=== PATIENT | male | born 1985 | race Caucasian/White ===

== ENCOUNTER 2017-04-04 17:31 | Emergency (ER) | payer OTHER ==
[~2017-04-04] VITALS: Ht 177.8 cm; Wt 72.6 kg
[~2017-04-04 17:31] MED LIST: ACEBUTCAFT PO; BUPRENORPHINE HC8 MG SL; CIPR.3TO RIGHTEYE; CYCL10 PO; Diphenhydramine50 M1 PO; HYDACE5 PO; HYDACE7.5 PO; IBUP600 PO; IBUP800; IBUP800 PO; KETO10 PO; METO10 PO; NAPR375 PO; NAPR500 PO; OXYACE5T PO; PENVK500 PO; PROACE100; PROACE100 PO; RXOXYACE PO; RXTRAM50 PO; SUBOXONE 8 MG-1 EACH SL; TRAM50 PO
== END 2017-04-04 19:50 | disposition left against medical advice (07) ==
LOC: ER 17:31
DX: K08.89 Other specified disorders of teeth and supporting structures (principal); Z79.899 Other long term (current) drug therapy; F17.200 Nicotine dependence, unspecified, uncomplicated
CPT/HCPCS: 99282

== ENCOUNTER 2017-08-25 09:22 | Emergency (ER) | payer OTHER ==
[~2017-08-25] VITALS: Ht 177.8 cm; Wt 72.6 kg
[2017-08-25] MEDS ORDERED: IBUP800 PO (10:48)
[2017-08-25] MEDS ORDERED: Robaxin-750750 MG PO (10:48)
== END 2017-08-25 12:18 | disposition home or self-care (01) ==
LOC: ER 09:22
DX: M54.16 Radiculopathy, lumbar region (principal); F17.200 Nicotine dependence, unspecified, uncomplicated
CPT/HCPCS: 72100; J1885

== ENCOUNTER → 2020-10-29 | Outpatient (CLI) | payer OTHER ==
[~2020-10-29] MED LIST changes: +Robaxin-750750 MG PO
[2020-10-31 21:58] LABS: CORONAVIRUS (COVID19) CSH-NRL Negative (Negative)
== END | disposition home or self-care (01) ==
LOC: LAB SHORT 14:46 → LAB 14:46
PROVIDERS: Chiropractor
DX: J06.9 Acute upper respiratory infection, unspecified (principal); Z20.822 Contact with and (suspected) exposure to COVID-19
CPT/HCPCS: U0003

== ENCOUNTER 2022-12-26 20:03 | Emergency (ER) | payer OTHER ==
[~2022-12-26] VITALS: Ht 177.8 cm; Wt 77.1 kg
[2022-12-26 23:41] VITALS: BP 116/77
== END 2022-12-27 00:31 | disposition home or self-care (01) ==
LOC: ER 20:03
DX: M54.2 Cervicalgia (principal); M54.6 Pain in thoracic spine; F17.210 Nicotine dependence, cigarettes, uncomplicated
CPT/HCPCS: 70450; 72070; 72125; 99284-25; A9270; J1885

== ENCOUNTER 2025-02-07 23:46 | Emergency (ER) | payer OTHER ==
[~2025-02-07] VITALS: Ht 177.8 cm; Wt 81.7 kg
[~2025-02-07 23:46] MED LIST changes: +Tobrex5 ML BOTHEYES
[2025-02-08 02:35] VITALS: BP 106/79
== END 2025-02-08 02:40 | disposition home or self-care (01) ==
LOC: ER 23:46
DX: N49.2 Inflammatory disorders of scrotum (principal); F17.210 Nicotine dependence, cigarettes, uncomplicated
CPT/HCPCS: 99282